=== PATIENT | male | born 1935 | race Asian ===

== ENCOUNTER 2019-04-28 19:12 | Emergency (ER) | payer MEDICARE, OTHER ==
[~2019-04-28] VITALS: Ht 167.6 cm; Wt 75.3 kg
[~2019-04-28 19:12] MED LIST: FLEC50TA3 PO; LOSA50TA3 PO; METO100T7 PO; [UNRECOGNIZED DRUG - OTHER]
--- NOTE | 2019-04-28 19:30 | NUR ---
pt bib self c/o slipped and fell in front of garage. scraped his head on the concrete. -ko. Ambulatory. aaox4. no sob. breathing evenly and unlabored.
--- NOTE | 2019-04-28 19:32 | NUR ---
seen and examined by
[2019-04-28] MEDS ORDERED: CEPHALEXIN MONOHYDRATE 500 MG CAPSULE PO ONE ×2 (19:41→20:00)
[2019-04-28] MEDS ORDERED: ACETAMINOPHEN ES 500 MG TABLET ONE ×2 (19:41→19:42)
--- NOTE | 2019-04-28 19:46 | NUR ---
TAKEN BY FILLER SHREDDER HELPER TO CT VIA [facility]
--- NOTE | 2019-04-28 19:59 | NUR ---
RETURNED FROM CT.
[2019-04-28] MEDS ORDERED: ACETAMINOPHEN ES 500 MG TABLET PO ONE (20:00)
--- NOTE | 2019-04-28 20:46 | NUR ---
PATIENT IS AMBULATORY WITH WALKING CANE. STEADY GAIT.
[2019-04-28 21:21] VITALS: BP 138/62
--- NOTE | 2019-04-28 21:21 | NUR ---
Patient discharged to home in stable condition. Written and verbal after care instructions given. Patient verbalizes understanding of instruction.
== END 2019-04-28 21:22 | disposition home or self-care (01) ==
LOC: ER 19:16
DX: S00.83XA Contusion of other part of head, initial encounter (principal); I10 Essential (primary) hypertension; E78.00 Pure hypercholesterolemia, unspecified; N40.0 Benign prostatic hyperplasia without lower urinary tract symptoms; Z98.890 Other specified postprocedural states; Z79.899 Other long term (current) drug therapy; W01.0XXA Fall on same level from slipping, tripping and stumbling without subsequent striking against object, initial encounter; Y93.89 Activity, other specified; Y92.89 Other specified places as the place of occurrence of the external cause; Y99.8 Other external cause status
CPT/HCPCS: 70450; 70486; 99284; A6403 ×2

== ENCOUNTER 2020-10-12 19:44 | Inpatient (IN) | payer MEDICARE, OTHER ==
[~2020-10-12] VITALS: Ht 172.7 cm; Wt 70.3 kg
[2020-10-12 20:22] LABS: BILIRUBIN,URINE NEGATIVE (NEGATIVE); COLOR,URINE YELLOW (YELLOW); LEUKOCYTE ESTERASE ,URINE NEGATIVE (NEGATIVE); NITRITE, URINE NEGATIVE (NEGATIVE); PH,URINE 5.5 (5.0-8.0); PROTEIN,URINE NEGATIVE (NEGATIVE); UGLUCOSE NEGATIVE (NEGATIVE); UROBILINOGEN,URINE 0.2 EU/dL (0.2)
[2020-10-12 20:28] LABS: BACTERIA,URINE RARE /HPF (None Seen); MUCUS,URINE Few /LPF (None Seen); SQUAMOUS EPITHELIAL CELL,UR 0-2 /HPF (None Seen); WBC,URINE 0-2 /HPF (0-3)
[2020-10-12] MEDS ORDERED: IV NS 0.9% 500 ML BAG IV ONE (20:30)
[2020-10-12 20:52] LABS: BASOPHILS # (AUTO) 0.1 K/uL (0.0-0.2); BASOPHILS % (AUTO) 0.6 % (0.0-2.0); EOSINOPHILS % (AUTO) 0.1 % (0.0-6.0); HEMATOCRIT 37 % (39-51); HEMOGLOBIN 12.2 g/dL (13.5-17.5); LYMPHOCYTES # (AUTO) 1.3 K/uL (0.8-4.8); LYMPHOCYTES % (AUTO) 7.7 % (20.0-44.0); MEAN CORPUSCULAR HGB CONC 33 g/dl (31.0-36.0); MEAN CORPUSCULAR VOLUME 94 fL (80-96); MONOCYTES # (AUTO) 0.8 K/uL (0.1-1.30); MONOCYTES % (AUTO) 4.5 % (2.0-12.0); NEUTROPHILS # (AUTO) 15.1 K/uL (1.8-8.9); NEUTROPHILS % (AUTO) 87.1 % (43.0-81.0); PLATELET COUNT (AUTO) 200 K/uL (150-450); RED BLOOD CELL COUNT(AUTO) 3.94 MIL/uL (4.5-6.0); WHITE BLOOD COUNT (AUTO) 17.3 K/uL (4.3-11.0)
--- NOTE | 2020-10-12 21:02 | NUR ---
BROUGHT TO CT AND BACK
[2020-10-12 21:05] LABS: CARBON DIOXIDE 24 mmol/L (21-32); CHLORIDE 104 mmol/L (98-107); GLUCOSE 141 mg/dL (74-106); POTASSIUM 4.2 mmol/L (3.5-5.1); SODIUM SERUM 139 mmol/L (136-145); UREA NITROGEN, BLOOD 22 mg/dL (7-18)
[2020-10-12 21:11] LABS: ALANINE AMINOTRANSFERASE 24 U/L (12-78); ALBUMIN 3.8 g/dL (3.4-5.0); ALKALINE PHOSPHATASE 53 U/L (46-116); ASPARTATE AMINOTRANSFERASE 18 U/L (15-37); BILIRUBIN,DIRECT 0.1 mg/dL (0.0-0.2); BILIRUBIN,TOTAL 0.4 mg/dL (0.2-1.0); LIPASE 69 U/L (73-393); TOTAL PROTEIN, SERUM 7.1 g/dL (6.4-8.2)
[2020-10-12] MEDS: PIPERACILLIN /TAZOBACTAM 3.375 G in IV D5W 50 ML IV ONE ×2 (22:00→22:25)
[2020-10-12] MEDS ORDERED: PIPERACILLIN /TAZOBACTAM 3.375 G VIAL IV ONE (22:02)
--- NOTE | 2020-10-12 22:13 | NUR ---
CALLED FOR COVID SWAB
--- NOTE | 2020-10-12 22:20 | NUR ---
DISTRICT SALES COORDINATOR AT BEDSIDE FOR BLOOD CULTURES.
--- NOTE | 2020-10-12 22:55 | NUR ---
COVID NEG, PER LAB
[2020-10-13] MEDS ORDERED: Z GUARD REMEDY 2 OZ OINT TP PRN
[2020-10-13] MEDS ORDERED: ONDANSETRON HCL/PF 4 MG/2 ML VIAL IVP PRN
[2020-10-13] MEDS ORDERED: MAG HYDROX/AL HYDROX/SIMETH 30 ML UDC PO PRN
[2020-10-13] MEDS ORDERED: ZOLPIDEM TARTRATE 5 MG TABLET PO PRN
[2020-10-13] MEDS ORDERED: MAGNESIUM HYDROXIDE 30 ML UDC PO PRN
[2020-10-13] MEDS ORDERED: ACETAMINOPHEN 325 MG TABLET PO PRN
--- NOTE | 2020-10-13 00:33 | NUR ---
AWAITING FOR ADMISSION BED.
--- NOTE | 2020-10-13 00:51 | NUR ---
ms 107
[2020-10-13 01:40] VITALS: BP 135/54
--- NOTE | 2020-10-13 01:42 | NUR ---
REORT GIVEN TO JAMIL ESPINOZA FOR MAVIS. PT TRANSFERED.
--- NOTE | 2020-10-13 01:45 | NUR ---
MS AUDIO VISUAL AIDE NOTE PATIENT A/OX4; ABLE TO MAKE NEEDS KNOWN. ON ROOM AIR; TOLERATING WELL WITH NO SOB. MAINTAINED ON NPO DIET. PATIENT C/O ABDOMINAL PAIN; WILL F/U WITH DR. SAHU. R HAND #22G; PATENT AND INTACT. ALL BELONGINGS ACCOUNTED FOR AND AND SIGNED PATIENT BELONGINGS LIST. ORIENTED PATIENT TO UNIT, STAFF, AND ROOM. VS WNL. SAFETY MEASURES IN PLACE: BED IN LOWEST LOCKED POSITION, SIDE RAILS UP X2. CALL LIGHT WITHIN EASY REACH, BED ALARMS ON. PATIENT IN STABLE CONDITION; WILL CONTINUE PLAN OF CARE.
[2020-10-13] MEDS ORDERED: METRONIDAZOLE 500MG/ NS 100ML 100 ML IV ONE (02:13)
[2020-10-13] MEDS: IV D5/0.45 NACL 1,000 ML IV PRN (02:17)
[2020-10-13] MEDS: METRONIDAZOLE 500MG/ NS 100ML 500 MG in PREMIX 1 EA IV SCH ×4 (02:20→23:38)
[2020-10-13] MEDS ORDERED: CIPROFLOXACIN IV RTU 200 ML IV ONE (03:15)
[2020-10-13] MEDS: CIPROFLOXACIN IV RTU 400 MG in PREMIX 1 EA IV SCH ×2 (03:26→12:42)
[2020-10-13 04:00] VITALS: BP 127/56
--- NOTE | 2020-10-13 06:54 | NUR ---
MS RN CLOSING NOTE PATIENT A/OX4; ABLE TO MAKE NEEDS KNOWN. ON ROOM AIR; TOLERATING WELL WITH NO SOB. MAINTAINED ON NPO DIET. R HAND #22G; PATENT AND INTACT D5 1/2 NS @ 75ML/HR. VS WNL. SAFETY MEASURES IN PLACE: BED IN LOWEST LOCKED POSITION, SIDE RAILS UP X2. CALL LIGHT WITHIN EASY REACH, BED ALARMS ON. PATIENT IN STABLE CONDITION; WILL ENDORSE PLAN OF CARE TO ONCOMING MORNING RN.
[2020-10-13] MEDS ORDERED: IV D5/0.45 NACL 1,000 ML IV ONE (07:00)
--- NOTE | 2020-10-13 07:49 | NUR ---
MS/RN OPENING NOTE RECEIVED PATIENT IN BED A/OX4; ABLE TO MAKE NEEDS KNOWN. ON ROOM AIR; TOLERATING WELL WITH NO SOB. MAINTAINED ON NPO DIET. R HAND #22G; PATENT AND INTACT D5 1/2 NS @ 75ML/HR. SAFETY MEASURES IN PLACE: BED IN LOWEST LOCKED POSITION, SIDE RAILS UP X2. CALL LIGHT WITHIN EASY REACH, BED ALARMS ON. WILL CONTINUE TO MONITOR PATIENT.
[2020-10-13 08:00] VITALS: BP 132/62
[2020-10-13 08:26] LABS: BASOPHILS % (AUTO) 0.3 % (0.0-2.0); EOSINOPHILS % (AUTO) 0.2 % (0.0-6.0); HEMATOCRIT 34 % (39-51); HEMOGLOBIN 11.5 g/dL (13.5-17.5); LYMPHOCYTES # (AUTO) 1.5 K/uL (0.8-4.8); LYMPHOCYTES % (AUTO) 9.8 % (20.0-44.0); MEAN CORPUSCULAR HGB CONC 34 g/dl (31.0-36.0); MEAN CORPUSCULAR VOLUME 94 fL (80-96); MONOCYTES # (AUTO) 0.9 K/uL (0.1-1.30); MONOCYTES % (AUTO) 5.9 % (2.0-12.0); NEUTROPHILS # (AUTO) 13.1 K/uL (1.8-8.9); NEUTROPHILS % (AUTO) 83.8 % (43.0-81.0); PLATELET COUNT (AUTO) 194 K/uL (150-450); RED BLOOD CELL COUNT(AUTO) 3.65 MIL/uL (4.5-6.0); WHITE BLOOD COUNT (AUTO) 15.7 K/uL (4.3-11.0)
[2020-10-13 08:52] LABS: CALCIUM, SERUM 8.3 mg/dL (8.5-10.1); CREATININE 0.9 mg/dL (0.6-1.3); MAGNESIUM 1.9 mg/dL (1.8-2.4); PHOSPHORUS 2.9 mg/dL (2.5-4.9); POTASSIUM 3.8 mmol/L (3.5-5.1)
[2020-10-13] MEDS ORDERED: FLECAINIDE ACETATE 50 MG TABLET PO SCH (09:00)
[2020-10-13] MEDS: METOPROLOL SUCCINATE 50 MG TAB.SR.24H PO SCH (09:00)
[2020-10-13] MEDS ORDERED: PANTOPRAZOLE 40 MG VIAL IV SCH (09:00)
[2020-10-13] MEDS: FLECAINIDE ACETATE (100 MG) 100 MG TABLET PO SCH (09:00)
[2020-10-13] MEDS: LOSARTAN POTASSIUM 50 MG TABLET PO SCH (09:00)
[2020-10-13] MEDS ORDERED: ZOLP10TA2 PO (09:31)
[2020-10-13] MEDS ORDERED: OXYB10TA30 PO (09:31)
[2020-10-13] MEDS ORDERED: TAMS-12 PO (09:31)
[2020-10-13] MEDS ORDERED: PRAV40TA3 PO (09:31)
[2020-10-13] MEDS ORDERED: ENZA80TA PO (09:31)
[2020-10-13] MEDS ORDERED: VALS320T16 PO (09:31)
[2020-10-13] MEDS ORDERED: SERT-439 PO (09:31)
[2020-10-13] MEDS: MORPHINE SULFATE INJ 4 MG/ML DISP.SYRIN SQ PRN ×2 (09:51→18:45)
[2020-10-13] MEDS: TAMSULOSIN 0.4 MG CAP.SR.24H PO SCH (12:00)
[2020-10-13 12:37] VITALS: BP 132/62
[2020-10-13 16:00] VITALS: BP 115/60
[2020-10-13] MEDS: ENOXAPARIN SODIUM 40 MG/0.4 ML DISP.SYRIN SQ SCH (18:38)
--- NOTE | 2020-10-13 19:06 | NUR ---
MS/RN CLOSING NOTE PATIENT IN BED A/OX4; ABLE TO MAKE NEEDS KNOWN. ON ROOM AIR; TOLERATING WELL WITH NO SOB. MAINTAINED ON NPO BUT OKAY TO TAKE PO MEDS WITH SIPS OF WATER PER DR. CASTILLO. R HAND #22G; PATENT AND INTACT D5 1/2 NS @ 125MLHR X1. SAFETY MEASURES IN PLACE: BED IN LOWEST LOCKED POSITION, SIDE RAILS UP X2. CALL LIGHT WITHIN EASY REACH, BED ALARMS ON. WILL ENDORSE TO THE NEXT SHIFT FOR CONTINUITY OF CARE
--- NOTE | 2020-10-13 19:58 | NUR ---
MS RN NOTES PATIENT IN BED A/OX4. NO S/S OF APPARENT DISTRESS. NO C/O PAIN DINESH. D5 1/2 NS RUNNING @ 125 ML/HR AT THE MOMENT. SAFETY IN PLACE: BED IN LOWEST, LOCKED POSITION. HOB ELEVATED, SIDE RAILS UP X2, CALL LIGHT WITHIN REACH. WILL CONTINUE TO MONITOR.
[2020-10-13] MEDS: ZOLPIDEM TARTRATE 10 MG TABLET PO SCH (22:08)
[2020-10-14] MEDS: CIPROFLOXACIN IV RTU 400 MG in PREMIX 1 EA IV SCH ×2 (00:31→12:19)
[2020-10-14] MEDS: IV D5/0.45 NACL 1,000 ML IV PRN (03:01)
[2020-10-14 06:03] LABS: BASOPHILS % (AUTO) 0.1 % (0.0-2.0); EOSINOPHILS % (AUTO) 0.2 % (0.0-6.0); HEMATOCRIT 35 % (39-51); HEMOGLOBIN 11.5 g/dL (13.5-17.5); LYMPHOCYTES # (AUTO) 0.8 K/uL (0.8-4.8); LYMPHOCYTES % (AUTO) 6.9 % (20.0-44.0); MEAN CORPUSCULAR HGB CONC 33 g/dl (31.0-36.0); MEAN CORPUSCULAR VOLUME 94 fL (80-96); MONOCYTES # (AUTO) 0.6 K/uL (0.1-1.30); MONOCYTES % (AUTO) 5.1 % (2.0-12.0); NEUTROPHILS # (AUTO) 10.5 K/uL (1.8-8.9); NEUTROPHILS % (AUTO) 87.7 % (43.0-81.0); PLATELET COUNT (AUTO) 189 K/uL (150-450); RED BLOOD CELL COUNT(AUTO) 3.73 MIL/uL (4.5-6.0); WHITE BLOOD COUNT (AUTO) 11.9 K/uL (4.3-11.0)
[2020-10-14 06:31] LABS: CALCIUM, SERUM 8.5 mg/dL (8.5-10.1); CREATININE 0.8 mg/dL (0.6-1.3); MAGNESIUM 1.9 mg/dL (1.8-2.4); POTASSIUM 3.9 mmol/L (3.5-5.1)
--- NOTE | 2020-10-14 07:01 | NUR ---
MS RN CLOSING 107 PATIENT IN BED WITH EYES CLOSED, EASY TO AROUSE. A/OX4. NO S/S OF APPARENT DISTRESS, TOLERATING ROOM AIR. SKIN INTACT - NO PICTURES TAKEN. SAFETY KEPT IN PLACE THE WHOLE SHIFT. ALL NEEDS ATTENDED. ALL SCHED MEDS ADMINISTERED. PATIENT PULLED IV OUT. TRIED PUTTING A NEW ONE BUT NO SUCCESS, MADE CHARGE KNOWN. PER CHARGE NURSE CENTRAL LINE IS GOING TO COME INSTEAD. NO SIGNIFICANT CHANGE SINCE LAST SHIFT. WILL ENDORSE CARE TO MORNING SHIFT RN.
--- NOTE | 2020-10-14 07:10 | NUR ---
RN NOTES PATIENT SEEN IN BED RESTING, AWAKE AND VERBALLY RESPONSIVE. A/O X4, ABLE TO MAKE NEEDS KNOWN. BREATHING EVEN AND UNLABORED, TOLERATING ROOM AIR. ENDORSED BY PREVIOUS SHIFT RN THAT IV LINE HAS BEEN PULLED OUT. ABLE TO USE URINAL. SAFETY MEASURES IN PLACE. WILL CONTINUE TO MONITOR.
[2020-10-14] MEDS: PANTOPRAZOLE 40 MG TABLET.DR PO SCH (08:23)
[2020-10-14] MEDS: TAMSULOSIN 0.4 MG CAP.SR.24H PO SCH (08:23)
[2020-10-14] MEDS: SERTRALINE HCL 50 MG TABLET PO SCH (08:23)
[2020-10-14] MEDS: VALSARTAN 80 MG TABLET PO SCH (08:24)
[2020-10-14] MEDS: METOPROLOL SUCCINATE 50 MG TAB.SR.24H PO SCH (08:25)
[2020-10-14] MEDS: FLECAINIDE ACETATE (100 MG) 100 MG TABLET PO SCH (08:25)
[2020-10-14] MEDS: LOSARTAN POTASSIUM 50 MG TABLET PO SCH (08:25)
--- NOTE | 2020-10-14 08:33 | NUR ---
RN NOTES PATIENT REQUESTED FOR DIOVAN AND SERTRALINE MEDICATIONS TO BE UNOPENED AT THIS TIME HE WILL TAKE IT IN A LITTLE BIT AFTER TAKING THE OTHER MEDICATIONS. REMINDED TO DRINK SMALL SIP OF WATER FOR MEDICATIONS; VERBALIZED UNDERSTANDING.
[2020-10-14] MEDS: ENZALUTAMIDE 80 MG PO SCH (09:00)
--- NOTE | 2020-10-14 10:05 | NUR ---
RN NOTES IV LINE INSERTED BY LYNDA, TOLL SETTLEMENT CLERK, ON LEFT HAND #22 GAUGE.
[2020-10-14] MEDS: METRONIDAZOLE 500MG/ NS 100ML 500 MG in PREMIX 1 EA IV SCH ×3 (10:51→23:06)
--- NOTE | 2020-10-14 13:30 | NUR ---
RN NOTES PATIENT WAS SEEN BY GALLITO CASTILLO NP, W/ ORDER TO ADVANCE DIET TO CLEAR LIQUID TOLERATED.
--- NOTE | 2020-10-14 17:50 | NUR ---
RN NOTES RECEIVED XTANDI HOME MEDICATION FROM JOAN, , AND GIVEN TO PHARMACY.
--- NOTE | 2020-10-14 18:40 | NUR ---
RN NOTES PATIENT ASSISTED TO THE BATHROOM, NO GAIT CHANGES NOTED. ABLE TO TOLERATE CLEAR LIQUID DIET AT THIS TIME; NO COMPLAINT OF NAUSEA/VOMITING. IVF CONTINUOUS. SAFETY MEASURES MAINTAINED.
--- NOTE | 2020-10-14 19:15 | NUR ---
RN NOTES ENDORSED TO PUMPING SUPERVISOR RN FOR MAVIS. PATIENT RESTING IN BED, CONTINUES ON IVF, TOLERATED CLEAR LIQUID DIET. Addendum: 10/14/20 at 2024 by BRIAN ALCANTARA RN REPORT RECIEVED FROM KEZIA ESPINOZA.
[2020-10-14 20:00] VITALS: BP 135/59
--- NOTE | 2020-10-14 20:23 | NUR ---
REPORT GIVEN TO MERVAT ESPINOZA FOR MVAIS PER ASSIGNMENT CHANGE WITH CHARGE NURSE. SPOKE WITH PATIENT FEELS READY TO ADVANCE DIET PER BESSEMER CONVERTER OPERATOR CASTILLO NOTES AND REPORT FROM KEZIA ESPINOZA PT TO ADVANCE DIET TOLERATED. FULL LIQUID DIET ORDERED TO START TOMORROW IN THE AM.
[2020-10-14] MEDS: ENOXAPARIN SODIUM 40 MG/0.4 ML DISP.SYRIN SQ SCH (21:45)
[2020-10-14] MEDS: ZOLPIDEM TARTRATE 10 MG TABLET PO SCH (21:48)
[2020-10-14] MEDS ORDERED: ATORVASTATIN 10 MG TABLET PO SCH (22:00)
[2020-10-15] MEDS: CIPROFLOXACIN IV RTU 400 MG in PREMIX 1 EA IV SCH ×2 (00:25→12:00)
[2020-10-15 06:07] LABS: BASOPHILS % (AUTO) 0.2 % (0.0-2.0); EOSINOPHILS % (AUTO) 0.8 % (0.0-6.0); HEMATOCRIT 36 % (39-51); HEMOGLOBIN 12.1 g/dL (13.5-17.5); LYMPHOCYTES % (AUTO) 9.4 % (20.0-44.0); MEAN CORPUSCULAR HGB CONC 34 g/dl (31.0-36.0); MEAN CORPUSCULAR VOLUME 94 fL (80-96); MONOCYTES # (AUTO) 0.7 K/uL (0.1-1.30); MONOCYTES % (AUTO) 6.9 % (2.0-12.0); NEUTROPHILS # (AUTO) 8.4 K/uL (1.8-8.9); NEUTROPHILS % (AUTO) 82.7 % (43.0-81.0); PLATELET COUNT (AUTO) 200 K/uL (150-450); RED BLOOD CELL COUNT(AUTO) 3.86 MIL/uL (4.5-6.0); WHITE BLOOD COUNT (AUTO) 10.2 K/uL (4.3-11.0)
[2020-10-15 06:17] LABS: CREATININE 0.9 mg/dL (0.6-1.3); POTASSIUM 3.7 mmol/L (3.5-5.1)
[2020-10-15] MEDS: IV D5/0.45 NACL 1,000 ML IV PRN (06:46)
--- NOTE | 2020-10-15 08:02 | NUR ---
RN Closing Notes Patient was last seen awake in bed. Patient is alert and oriented x4. Patient's stable on room air with no respiratory distress noted. Patient has an IV access on his right AC gauge #20, which is intact and patent. Pt's in no acute distress at this time. Safety measures in place: bed locked, bed alarm on, call light within reach, side rails up x3. Will endorse care to the day shift nurse.
[2020-10-15] MEDS: VALSARTAN 80 MG TABLET PO SCH (08:35)
[2020-10-15] MEDS: PANTOPRAZOLE 40 MG TABLET.DR PO SCH (08:36)
[2020-10-15] MEDS: METOPROLOL SUCCINATE 50 MG TAB.SR.24H PO SCH (08:37)
[2020-10-15] MEDS: SERTRALINE HCL 50 MG TABLET PO SCH (08:37)
[2020-10-15] MEDS: TAMSULOSIN 0.4 MG CAP.SR.24H PO SCH (08:37)
[2020-10-15 08:38] VITALS: BP 138/62
[2020-10-15] MEDS: LOSARTAN POTASSIUM 50 MG TABLET PO SCH (08:38)
[2020-10-15] MEDS: FLECAINIDE ACETATE (100 MG) 100 MG TABLET PO SCH (08:38)
[2020-10-15] MEDS: METRONIDAZOLE 500MG/ NS 100ML 500 MG in PREMIX 1 EA IV SCH (08:39)
[2020-10-15] MEDS: ENZALUTAMIDE 80 MG PO SCH (09:20)
[2020-10-15] MEDS ORDERED: LEVO500T90 PO (13:23)
--- NOTE | 2020-10-15 14:10 | NUR ---
RN Notes Patient being uncooperative with IV medications and pulled out IV, refusing to allow another IV placement to finish up the IV . medications , ....
--- NOTE | 2020-10-15 15:08 | NUR ---
RN Notes Patient D/C by MD authorized to D/C to home care, would not be compliant and cooperate with care, Fany picked patient up at 1430 PM , safe transfer from room to wheel chair to out side vehicle, given education on how to care for patient and printed out educational material , pharmacy contacted per choice to continuous pickling line pickler medications and the home medications brought into pharmacy at hospital given back, all belongings sent with patient and all documentation signed, family notified and provided the transportation for today and will be caring for patient, follow up care and information provided with phone number and date to contact in 7 days or if any significant changes noted.
== END 2020-10-15 15:08 | disposition home or self-care (01) | DRG 872 ==
LOC: ER 19:46 → MEDSG1 10-13 01:29
PROVIDERS: ADMIT Student in an Organized Health Care Education/Training Program; ATTEND Internal Medicine
DX: A41.9 Sepsis, unspecified organism (principal); K57.32 Diverticulitis of large intestine without perforation or abscess without bleeding; I10 Essential (primary) hypertension; E86.0 Dehydration; E78.5 Hyperlipidemia, unspecified; Z20.822 Contact with and (suspected) exposure to COVID-19; I45.6 Pre-excitation syndrome; Z98.890 Other specified postprocedural states; Z79.899 Other long term (current) drug therapy; C61 Malignant neoplasm of prostate; D64.9 Anemia, unspecified; K76.89 Other specified diseases of liver; K80.20 Calculus of gallbladder without cholecystitis without obstruction; N20.0 Calculus of kidney
CPT/HCPCS: 36415; 80048-TC; 80061-TC; 80076-TC; 81001; 83605-TC; 83690-TC; 83735-TC; 84100-TC; 85025-TC; 87040-TC; 87081-TC; 97112-TC; 97116-TC; 97530-TC; A4216; C9113; C9803; G0378; J0744; J1650; J2270; J2543; J3490; J7042; J7060